=== PATIENT | male | born 1975 ===

== ENCOUNTER 2024-01-18 06:23 | Day surgery (SDC) | payer BC, SELFPAY ==
[2024-01-18] VITALS (14 sets, daily range): BP systolic 113–138; BP diastolic 66–91; BMI 34.0
[2024-01-18] MEDS: TYLENOL 1000 MG PO (07:27)
[2024-01-18] MEDS: CELEBREX 200 MG PO (07:27)
[2024-01-18] MEDS: NORMOSOL-R/PLASMALYTE-A 1000 IV (07:33)
== END 2024-01-18 13:00 | disposition home or self-care (01) ==
LOC: SDS 06:23
PROVIDERS: ATTENDING PHYSICIAN Orthopaedic Surgery Hand Surgery
PROC: 0LX40ZZ Transfer Left Upper Arm Tendon, Open Approach (ICD-10-PCS; 2024-01-18)
PROC: 0PBG0ZZ Excision of Left Humeral Shaft, Open Approach (ICD-10-PCS; 2024-01-18)
PROC: 0MB40ZZ Excision of Left Elbow Bursa and Ligament, Open Approach (ICD-10-PCS; 2024-01-18)
DX: M77.12 Lateral epicondylitis, left elbow (principal); M70.22 Olecranon bursitis, left elbow; S46.312A Strain of muscle, fascia and tendon of triceps, left arm, initial encounter; X58.XXXA Exposure to other specified factors, initial encounter
CPT/HCPCS: 24140; 24105; 24341; 87070; 87075; 87147; 87176; 87186; 87205

== ENCOUNTER 2024-05-08 06:35 | Day surgery (SDC) | payer BC, SELFPAY | END 2024-05-08 08:35 | disposition home or self-care (01) | LOC: GI 06:35 | PROVIDERS: ATTENDING PHYSICIAN Internal Medicine; FAMILY PHYSICIAN Student in an Organized Health Care Education/Training Program | DX: Z12.11 Encounter for screening for malignant neoplasm of colon (principal); K64.8 Other hemorrhoids; K64.4 Residual hemorrhoidal skin tags; K57.30 Diverticulosis of large intestine without perforation or abscess without bleeding; D12.2 Benign neoplasm of ascending colon; D12.5 Benign neoplasm of sigmoid colon; Z80.0 Family history of malignant neoplasm of digestive organs | CPT/HCPCS: 45385; 88305 ==